=== PATIENT | female | born 1930 | race African-American/Black ===

== ENCOUNTER 2018-05-09 09:18 | Emergency (ER) | payer MEDICARE, OTHER ==
[2018-05-09] MEDS ORDERED: NORMAL SALINE 1000 ML 500 ML IV ONE (09:52)
--- NOTE | 2018-05-09 09:53 | ER Document Report ---
ED Medical Screen (RME) - General Chief Complaint: High Blood Sugar Stated Complaint: BLOOD SUGAR ISSUE Time Seen by Provider: 05/09/18 09:45 Primary Care Provider: TARA VIDAL MD [Primary Care Provider] - Follow up as needed Notes: 87 years old female forgot to take metformin yesterday, and also she was prescribed Levemir has never started because she does know how to take them presents today with blood sugar of 600. No other symptoms TRAVEL OUTSIDE OF THE [place] IN LAST 30 DAYS: No - Related Data Allergies/Adverse Reactions: Penicillins Allergy (Verified 05/09/18 09:20) Past Medical History - Past Medical History Cardiac Medical History: Reports: Hx Hypertension Endocrine Medical History: Reports: Hx Diabetes Mellitus Type 2 Musculoskeltal Medical History: Reports Hx Arthritis Past Surgical History: Reports: Hx Hysterectomy, Hx Orthopedic Surgery - left knee, bilat foot. - Immunizations Hx Diphtheria, Pertussis, Tetanus Vaccination: Yes Physical Exam - Vital signs Vitals: Temp Pulse Resp BP Pulse Ox 97.8 F 66 15 160/65 H 98 05/09/18 09:23 05/09/18 09:23 05/09/18 09:23 05/09/18 09:23 05/09/18 09:23 Course - Vital Signs Vital signs: Temp Pulse Resp BP Pulse Ox 97.8 F 66 15 160/65 H 98 05/09/18 09:23 05/09/18 09:23 05/09/18 09:23 05/09/18 09:23 05/09/18 09:23 Doctor's Discharge - Discharge Referrals: TARA VIDAL MD [Primary Care Provider] - Follow up as needed
--- NOTE | 2018-05-09 11:42 | ER Document Report ---
ED General - General Chief Complaint: High Blood Sugar Stated Complaint: BLOOD SUGAR ISSUE Time Seen by Provider: 05/09/18 09:45 Primary Care Provider: TARA VIDAL MD [Primary Care Provider] - Follow up as needed TRAVEL OUTSIDE OF THE [place] IN LAST 30 DAYS: No - HPI Notes: Patient is an 87-year-old female with a history of type 2 diabetes who presents to the emergency department for elevated blood glucose and not sure how to use her Levemir that she was recently prescribed. Patient otherwise takes metformin. She does not take any other medicines daily. No other significant past medical history. Patient states that she feels well and has been eating and drinking without difficult he. She is urinating normally and having normal bowel movements. She does not have any concern of pain. No other concerns or complaints. Denies any headache, fever, neck pain, changes in vision/speech/mentation/hearing, URI, sore throat, chest pain, palpitations, syncope, cough, shortness of breath, wheeze, dyspnea, abdominal pain, nausea/vomiting/diarrhea, urinary retention, dysuria, hematuria, or rash. - Related Data Allergies/Adverse Reactions: Penicillins Allergy (Verified 05/09/18 09:20) Past Medical History - Social History Smoking Status: Never Smoker Chew tobacco use (# tins/day): No Frequency of alcohol use: None Drug Abuse: None Family History: Reviewed & Not Pertinent Patient has suicidal ideation: No Patient has homicidal ideation: No - Past Medical History Cardiac Medical History: Reports: Hx Hypertension Endocrine Medical History: Reports: Hx Diabetes Mellitus Type 2 Renal/ Medical History: Denies: Hx Peritoneal Dialysis Musculoskeletal Medical History: Reports Hx Arthritis Past Surgical History: Reports: Hx Hysterectomy, Hx Orthopedic Surgery - left knee, bilat foot. - Immunizations Hx Diphtheria, Pertussis, Tetanus Vaccination: Yes Review of Systems - Review of Systems -: Yes All other systems reviewed and negative Physical Exam - Vital signs Vitals: Temp Pulse Resp BP Pulse Ox 97.8 F 66 15 160/65 H 98 05/09/18 09:23 05/09/18 09:23 05/09/18 09:23 05/09/18 09:23 05/09/18 09:23 - Notes Notes: PHYSICAL EXAMINATION: GENERAL: Well-appearing, well-nourished and in no acute distress. A&Ox4. Answers questions appropriately. HEAD: Atraumatic, normocephalic. EYES: Pupils equal round and reactive to light, extraocular movements intact, sclera anicteric, conjunctiva are normal. ENT: Nares patent and without discharge. oropharynx clear without exudates. No tonsilar hypertrophy or erythema. Moist mucous membranes. NECK: Normal range of motion, supple without lymphadenopathy LUNGS: Breath sounds clear to auscultation bilaterally and equal. No wheezes rales or rhonchi. HEART: Regular rate and rhythm without murmurs, rubs, gallops. ABDOMEN: Soft, nontender, nondistended abdomen. No guarding, no rebound. No masses appreciated. Normal bowel sounds present. No CVA tenderness bilaterally . Musculoskeletal: FROM to passive/active. Strength 5+/5. Extremities: No cyanosis, clubbing, or edema b/l. Peripheral pulses 2+. Capillary refill less than 3 seconds. NEUROLOGICAL: Cranial nerves grossly intact. Normal speech, normal gait. PSYCH: Normal mood, normal affect. SKIN: Warm, Dry, normal turgor, no rashes or lesions noted. Course - Re-evaluation Re-evalutation: 05/09/18 12:40 Patient is an afebrile, well-hydrated, 87-year-old female who presents the emergency department with elevated blood glucose levels. Vitals are acceptable without significant tachycardia, tachypnea, or hypoxia. PE is otherwise un remarkable. Patient is nontoxic-appearing and is tolerating p.o. without difficulty. Her glucose is 190 today. Lab work was unremarkable otherwise aside from an A1c greater than 14. Nurse educated patient on use of Levemir, but patient will have to call her family doctor for charting as to when she should use it and she needs to be checking her sugars at least twice daily and keeping a log. No further labs or imaging warranted at this time. Low suspicion for any DKA, HHS, sepsis, meningitis, acute abdomen, or other significant systemic emergent condition at this time. Patient to monitor symptoms closely and seek medical attention with any acute changes. Recheck with your PCM in the next 2-3 days. Return to the ED with any other worsening/concerning symptoms as reviewed. Patient is in agreement. - Vital Signs Vital signs: Temp Pulse Resp BP Pulse Ox 97.8 F 66 15 160/65 H 98 05/09/18 09:23 05/09/18 09:23 05/09/18 09:23 05/09/18 09:23 05/09/18 09:23 - Laboratory Result Diagrams: 05/09/18 11:50 05/09/18 11:50 Laboratory results interpreted by me: 05/09/18 05/09/18 05/09/18 09:55 11:50 11:50 WBC 3.9 L Carbon Dioxide 31 H BUN 21 H Est GFR (Non-Af Amer) 53 L Glucose 190 H POC Glucose 242 H Hemoglobin A1c % 05/09/18 11:50 WBC Carbon Dioxide BUN Est GFR (Non-Af Amer) Glucose POC Glucose Hemoglobin A1c % > 14.0 H Discharge - Discharge Clinical Impression: Blood glucose elevated Condition: Stable Disposition: HOME, SELF-CARE Additional Instructions: Maintain adequate fluid and food intake Take home medications as directed Low carb/sugar diet Light exercise as able Monitor blood glucose twice daily and keep a log Monitor symptoms for any acute changes Recheck with your PCM in 2-3 days Consider a follow-up with Endocrinology Return to the ED with any worsening symptoms and/or development of fever, headache, chest pain, palpitations, syncope, shortness of breath, trouble breathing, abdominal pain, n/v/d, blood in stool/urine, loss of control of bowel/bladder, urinary retention, muscle weakness/paralysis, numbness/tingling, or other worsening symptoms that are concerning to you. Forms: Elevated Blood Pressure Referrals: TARA VIDAL MD [Primary Care Provider] - 05/11/18
[2018-05-09 12:00] LABS: ABSOLUTE EOSINOPHILS # (AUTO) 0.1 10^3/uL (0.0-0.6); ABSOLUTE LYMPHOCYTES (AUTO) 1.2 10^3/uL (0.5-4.7); ABSOLUTE MONOCYTES (AUTO) 0.2 10^3/uL (0.1-1.4); ABSOLUTE NEUT (AUTO) 2.4 10^3/uL (1.7-8.2); BASOPHILS % (AUTO) 1.3 % (0-2); EOSINOPHILS % (AUTO) 1.8 % (0-6); HEMATOCRIT 37.1 % (36.0-47.0); HEMOGLOBIN 12.5 g/dL (12.0-15.5); LYMPHOCYTES % (AUTO) 30.7 % (13-45); MEAN CORPUSCULAR HEMOGLOBIN 27.4 pg (27.0-33.4); MEAN CORPUSCULAR HGB CONC 33.6 g/dL (32.0-36.0); MEAN CORPUSCULAR VOLUME 82 fl (80-97); MONOCYTES % (AUTO) 5.4 % (3-13); PLATELET COUNT 192 10^3/uL (150-450); RED BLOOD COUNT 4.55 10^6/uL (3.72-5.28); SEGMENTED NEUTROPHILS % (AUTO) 60.8 % (42-78); TOTAL CELLS COUNTED % (AUTO) 100 %; WHITE BLOOD COUNT 3.9 10^3/uL (4.0-10.5)
[2018-05-09 12:35] LABS: ALANINE AMINOTRANSFERASE 12 U/L (9-52); ALKALINE PHOSPHATASE 79 U/L (38-126); ANION GAP 6 (5-19); ASPARTATE AMINO TRANSFERASE 31 U/L (14-36); BILIRUBIN,DIRECT 0.2 mg/dL (0.0-0.4); BILIRUBIN,TOTAL 0.5 mg/dL (0.2-1.3); BLOOD UREA NITROGEN 21 mg/dL (7-20); CALCIUM 9.2 mg/dL (8.4-10.2); CARBON DIOXIDE 31 mmol/L (22-30); CHLORIDE 105 mmol/L (98-107); GLUCOSE 190 mg/dL (75-110); POTASSIUM 4.4 mmol/L (3.6-5.0); SODIUM 141.9 mmol/L (137-145); TOTAL PROTEIN 7.2 g/dL (6.3-8.2)
[2018-05-09 13:12] VITALS: BP 168/87
== END 2018-05-09 13:21 | disposition home or self-care (01) ==
LOC: ER 09:18
DX: E11.65 Type 2 diabetes mellitus with hyperglycemia (principal); Z79.84 Long term (current) use of oral hypoglycemic drugs; I10 Essential (primary) hypertension
CPT/HCPCS: 99283; 96360; 36415; 82962; 85025; 80053; 83036; J7030

== ENCOUNTER 2019-02-18 22:53 | Emergency (ER) | payer MEDICARE, OTHER ==
--- NOTE | 2019-02-18 23:47 | ER Document Report ---
ED Medical Screen (RME) - General Stated Complaint: LOWER BODY JOINT PAIN Time Seen by Provider: 02/18/19 23:42 Primary Care Provider: TARA VIDAL MD [Primary Care Provider] - Follow up as needed Mode of Arrival: Wheelchair Information source: Patient Notes: This 88-year-old female with history of diabetes presents emergency department with complaints of leg and hip pain that started last night. Reports she took Tylenol without relief of symptoms. Denies history of fall. Denies fever vomiting diarrhea. Denies chest pain shortness of breath. Denies pain with void. Patient is unsure of what her blood glucose levels have been. I have greeted and performed a rapid initial assessment of this patient. A comprehensive ED assessment and evaluation of the patient, analysis of test results and completion of the medical decision making process will be conducted by additional ED providers. Dictation of this chart was performed using voice recognition software; therefore, there may be some unintended grammatical errors. TRAVEL OUTSIDE OF THE [place] IN LAST 30 DAYS: No - Related Data Allergies/Adverse Reactions: Penicillins Allergy (Verified 02/18/19 23:43) Past Medical History - Past Medical History Cardiac Medical History: Reports: Hx Hypertension Endocrine Medical History: Reports: Hx Diabetes Mellitus Type 2 Renal/ Medical History: Denies: Hx Peritoneal Dialysis Musculoskeltal Medical History: Reports Hx Arthritis Past Surgical History: Reports: Hx Hysterectomy, Hx Orthopedic Surgery - left knee, bilat foot. - Immunizations Hx Diphtheria, Pertussis, Tetanus Vaccination: Yes Physical Exam - Vital signs Vitals: Temp Pulse Resp BP Pulse Ox 97.6 F 66 16 160/84 H 97 02/18/19 23:10 02/18/19 23:10 02/18/19 23:10 02/18/19 23:10 02/18/19 23:10 Course - Vital Signs Vital signs: Temp Pulse Resp BP Pulse Ox 97.6 F 66 16 160/84 H 97 02/18/19 23:10 02/18/19 23:10 02/18/19 23:10 02/18/19 23:10 02/18/19 23:10 Doctor's Discharge - Discharge Referrals: TARA VIDAL MD [Primary Care Provider] - Follow up as needed
[2019-02-19 00:44] LABS: APPEARANCE,URINE CLEAR; BILIRUBIN,URINE NEGATIVE (NEGATIVE); COLOR,URINE STRAW; GLUCOSE, URINE 50 mg/dL (NEGATIVE); KETONES,URINE NEGATIVE (NEGATIVE); PROTEIN,URINE 100 mg/dL (NEGATIVE); URINE SPECIFIC GRAVITY 1.011; UROBILINOGEN,URINE NEGATIVE mg/dL (<2.0)
[2019-02-19 02:10] LABS: ABSOLUTE BASOPHILS # (AUTO) 0.1 10^3/uL (0.0-0.2); ABSOLUTE EOSINOPHILS # (AUTO) 0.2 10^3/uL (0.0-0.6); ABSOLUTE LYMPHOCYTES (AUTO) 1.7 10^3/uL (0.5-4.7); ABSOLUTE MONOCYTES (AUTO) 0.3 10^3/uL (0.1-1.4); ABSOLUTE NEUT (AUTO) 2.7 10^3/uL (1.7-8.2); BASOPHILS % (AUTO) 1.1 % (0-2); EOSINOPHILS % (AUTO) 4.4 % (0-6); HEMATOCRIT 37.6 % (36.0-47.0); HEMOGLOBIN 12.4 g/dL (12.0-15.5); LYMPHOCYTES % (AUTO) 34.3 % (13-45); MEAN CORPUSCULAR HEMOGLOBIN 26.4 pg (27.0-33.4); MEAN CORPUSCULAR HGB CONC 33.1 g/dL (32.0-36.0); MEAN CORPUSCULAR VOLUME 80 fl (80-97); MONOCYTES % (AUTO) 6.7 % (3-13); PLATELET COUNT 168 10^3/uL (150-450); RED BLOOD COUNT 4.71 10^6/uL (3.72-5.28); RED CELL DISTRIBUTION WIDTH 13.8 % (11.5-14.0); SEGMENTED NEUTROPHILS % (AUTO) 53.5 % (42-78); TOTAL CELLS COUNTED % (AUTO) 100 %
--- NOTE | 2019-02-19 02:13 | ER Document Report ---
ED General - General Chief Complaint: Pain All Over Stated Complaint: LOWER BODY JOINT PAIN Time Seen by Provider: 02/18/19 23:42 Primary Care Provider: TARA VIDAL MD [Primary Care Provider] - Follow up in 3-5 days Mode of Arrival: Wheelchair Notes: Patient is an 88-year-old female that comes emergency department from home with her family for chief complaint of feeling achy and restless. She states that her thighs were hurting, worse on the left, she states that she could not get comfortable in bed and her family became concerned and brought her to the emergency department. She states she took Tylenol but still does not feel better although after arrival to the emergency department her symptoms resolved. She denies a fall or injury. She denies fever/chills, abdominal pain, numbn ess, incontinence, vomiting, diarrhea, chest pain. Family states she is acting her normal baseline and is alert and oriented. She has a past medical history of diabetes, hypertension, arthritis, hysterectomy. TRAVEL OUTSIDE OF THE [place] IN LAST 30 DAYS: No - Related Data Allergies/Adverse Reactions: Penicillins Allergy (Verified 02/18/19 23:43) Past Medical History - General Information source: Patient - Social History Smoking Status: Never Smoker Frequency of alcohol use: None Drug Abuse: None Lives with: Family Family History: Reviewed & Not Pertinent Patient has suicidal ideation: No Patient has homicidal ideation: No - Past Medical History Cardiac Medical History: Reports: Hx Hypertension Endocrine Medical History: Reports: Hx Diabetes Mellitus Type 2 Renal/ Medical History: Denies: Hx Peritoneal Dialysis Musculoskeletal Medical History: Reports Hx Arthritis Past Surgical History: Reports: Hx Hysterectomy, Hx Orthopedic Surgery - left knee, bilat foot. - Immunizations Hx Diphtheria, Pertussis, Tetanus Vaccination: Yes Review of Systems - Review of Systems Constitutional: See HPI EENT: No symptoms reported Cardiovascular: No symptoms reported Respiratory: No symptoms reported Gastrointestinal: No symptoms reported Genitourinary: No symptoms reported Female Genitourinary: No symptoms reported Musculoskeletal: See HPI Skin: No symptoms reported Hematologic/Lymphatic: No symptoms reported Neurological/Psychological: No symptoms reported Physical Exam - Vital signs Vitals: Temp Pulse Resp BP Pulse Ox 97.6 F 66 16 160/84 H 97 02/18/19 23:10 02/18/19 23:10 02/18/19 23:10 02/18/19 23:10 02/18/19 23:10 - Notes Notes: GENERAL: Smiling, talkative, well-appearing, no signs of distress HEAD: Normocephalic, atraumatic. EYES: Pupils equal, round, and reactive to light. Extraocular movements intact. ENT: Oral mucosa moist, tongue midline. Oropharynx unremarkable. Airway patent. Nares patent, no nasal septal hematoma, TM's intact. NECK: Full range of motion. Supple. Trachea midline. LUNGS: Clear to auscultation bilaterally, no wheezes, rales, or rhonchi. No respiratory distress. HEART: Regular rate and rhythm. No murmur ABDOMEN: Soft, non-tender. Non-distended. Bowel sounds present in all 4 quadrants. EXTREMITIES: No tenderness over the thighs and hips. Ambulates without difficulty. Moves all 4 extremities spontaneously. No edema, normal radial and dorsalis pedis pulses bilaterally. No cyanosis. BACK: no cervical, thoracic, lumbar midline tenderness. No saddle anesthesia, normal distal neurovascular exam. Moves all extremities in full range of motion. NEUROLOGICAL: Alert and oriented x3. Normal speech. Cranial nerves II through XII grossly intact. PSYCH: Normal affect, normal mood. SKIN: Warm, dry, normal turgor. No rashes or lesions noted. Course - Re-evaluation Re-evalutation: Patient was complaining of generalized achiness and weakness along with pain in her lower extremities and thighs, however on my evaluation she has no co mplaints. She is smiling, oriented, talkative, well-appearing, and reportedly at her baseline. Vital signs are unremarkable. Soft benign abdomen, nontender hips and thighs, normal distal neurovascular exam. We did get patient up and she ambulated independently very well without any complaints. CBC, chemistry unremarkable, urinalysis shows possible developing infection. under evaluation patient unchanged and is requesting to go home. She is with her family and staying with them. We discussed options. Patient will be treated for possible developing UTI, she will take Tylenol for pain with suspected arthritis, she will return if she worsens in any way and this was discussed in detail. They state appreciation and agreement. Stable at time of discharge. - Vital Signs Vital signs: Temp Pulse Resp BP Pulse Ox 97.5 F 58 L 16 156/81 H 98 02/19/19 04:40 02/19/19 04:40 02/19/19 04:40 02/19/19 04:40 02/19/19 04:40 - Laboratory Result Diagrams: 02/19/19 01:45 02/19/19 01:45 Laboratory results interpreted by me: 02/19/19 02/19/19 02/19/19 00:14 01:38 01:45 MCH 26.4 L BUN Est GFR ( Amer) Est GFR (MDRD) Non-Af Glucose POC Glucose 115 H Urine Protein 100 H Urine Glucose (UA) 50 H Urine Blood SMALL H Leukocyte Esterase Rfl MODERATE H 02/19/19 01:45 MCH BUN 24 H Est GFR ( Amer) 58 L Est GFR (MDRD) Non-Af 48 L Glucose 118 H POC Glucose Urine Protein Urine Glucose (UA) Urine Blood Leukocyte Esterase Rfl Discharge - Discharge Clinical Impression: Body aches Condition: Stable Disposition: HOME, SELF-CARE Additional Instructions: Take the Keflex antibiotic as prescribed for urinary tract infection. Take Tylenol for pain in your leg and hips which is most likely from arthritis. Drink plenty of fluids. Follow-up closely with your primary care provider. Come back if you worsen including fever, confusion, vomiting, or any other concerning symptoms. Prescriptions: Cephalexin Monohydrate [Keflex 500 mg Capsule] 500 mg PO BID 7 Days #14 capsule Referrals: TARA VIDAL MD [Primary Care Provider] - Follow up in 3-5 days
[2019-02-19 02:28] LABS: ALBUMIN 3.9 g/dL (3.5-5.0); ALKALINE PHOSPHATASE 100 U/L (38-126); ANION GAP 9 (5-19); ASPARTATE AMINO TRANSFERASE 24 U/L (14-36); BILIRUBIN,DIRECT 0.1 mg/dL (0.0-0.4); BILIRUBIN,TOTAL 0.3 mg/dL (0.2-1.3); BLOOD UREA NITROGEN 24 mg/dL (7-20); CALCIUM 9.7 mg/dL (8.4-10.2); CARBON DIOXIDE 27 mmol/L (22-30); CHLORIDE 105 mmol/L (98-107); GLUCOSE 118 mg/dL (75-110); POTASSIUM 3.8 mmol/L (3.6-5.0); TOTAL PROTEIN 7.1 g/dL (6.3-8.2)
[2019-02-19] MEDS ORDERED: CEPHALEXIN 500 MG CAPSULE PO ONE (04:08)
[2019-02-19 04:42] VITALS: BP 156/81
== END 2019-02-19 04:46 | disposition home or self-care (01) ==
LOC: ER 22:53
DX: M79.652 Pain in left thigh (principal); M79.651 Pain in right thigh; R53.1 Weakness; I10 Essential (primary) hypertension; E11.9 Type 2 diabetes mellitus without complications; Z88.0 Allergy status to penicillin
CPT/HCPCS: 99283; 36415; 82962; 85025; 80053; 81001; A9270; 87086